=== PATIENT | male | born 1975 | race Two or more races ===

== ENCOUNTER 2019-01-30 22:22 | Emergency (ER) | payer SELFPAY ==
[~2019-01-30] VITALS: Ht 170.2 cm; Wt 102.7 kg
[2019-01-30] MEDS ORDERED: AMOX125T PO (22:33)
[2019-01-30] MEDS ORDERED: ACETAMINOPHEN/CODEINE 300-30 MG TABLET PO ONE (23:45)
[2019-01-30] MEDS ORDERED: ONDANSETRON HCL 4 MG/2 ML VIAL IM ONE (23:45)
[2019-01-30] MEDS ORDERED: HYDROmorphone 2 MG/ML SYRINGE IM ONE (23:45)
[2019-01-31 00:28] VITALS: BP 118/79
== END 2019-01-31 00:54 | disposition home or self-care (01) ==
LOC: EMS 22:25
DX: J02.9 Acute pharyngitis, unspecified (principal)
CPT/HCPCS: 96372; 99283; J1170; J2405